=== PATIENT | female | born 1935 | race Two or more races ===

== ENCOUNTER 2018-01-21 18:05 | Observation (INO) | payer MEDICARE, OTHER ==
[~2018-01-21] VITALS: Ht 154.9 cm; Wt 71.9 kg
[~2018-01-21 18:05] MED LIST: AMLODIPINE BESYL5 MG PO; GLIMEPIRIDE2 MG PO; MELOXICAM7.5 MG PO; METOPROLOL TART25 MG PO; PROTONIX40 MG/ML; SIMVASTATIN40 MG PO; TRAMADOL-ACETAMI1 EA PO; VASOTEC10 MG PO
[2018-01-21] MEDS ORDERED: ASPIRIN 81 MG CHEW TAB PO ONE (18:30)
[2018-01-21 18:45] LABS: BASOPHILS # (AUTO) 0.1 (0.0-0.1); BASOPHILS % 0.5 % (0.0-1.0); EOSINOPHILS # (AUTO) 0.3 (0.0-0.4); EOSINOPHILS % 2.4 % (0.0-6.0); HEMATOCRIT 42.1 % (34.2-44.1); HEMOGLOBIN 13.6 g/dL (12.0-16.0); LYMPHOCYTES # (AUTO) 2.6 (1.0-3.2); LYMPHOCYTES % 25.3 % (18.0-39.1); MEAN CORPUSCULAR HEMOGLOBIN 29.7 pg (28-32); MEAN CORPUSCULAR HGB CONC 32.3 g/dL (31-35); MEAN CORPUSCULAR VOLUME 91.9 fL (81-99); MONOCYTES # (AUTO) 0.6 (0.2-0.8); MONOCYTES % 6.1 % (4.4-11.3); NEUTROPHILS # (AUTO) 6.8 (2.1-6.9); NEUTROPHILS % 65.3 % (38.7-80.0); PLATELET COUNT 366 x10e3/uL (140-360); RED BLOOD COUNT 4.58 x10e6/uL (3.6-5.1); RED CELL DISTRIBUTION WIDTH 13.1 % (11.7-14.4)
[2018-01-21 18:53] LABS: INR 0.95; PROTHROMBIN TIME 13.6 seconds (11.9-14.5)
[2018-01-21 18:54] LABS: PARTIAL THROMBOPLASTIN TIME 27.8 seconds (23.8-35.5)
[2018-01-21 19:02] LABS: ALANINE AMINOTRANSFERASE 28 IU/L (0-55); ALBUMIN 3.7 g/dL (3.5-5.0); ALBUMIN/GLOBULIN RATIO 0.9 (0.8-2.0); ALKALINE PHOSPHATASE 76 IU/L (40-150); ANION GAP 16.1 mmol/L (8-16); BLOOD UREA NITROGEN 19 mg/dL (7-26); BUN/CREATININE RATIO 25 (6-25); CALCIUM 9.7 mg/dL (8.4-10.2); CARBON DIOXIDE 26 mmol/L (22-29); CHLORIDE 104 mmol/L (98-107); CREATINE KINASE 113 IU/L (29-168); CREATININE, SERUM 0.77 mg/dL (0.57-1.11); EST GLOMERULAR FILTRATION RATE > 60 ML/MIN (60-); GLUCOSE 157 mg/dL (74-118); SODIUM 141 mmol/L (136-145)
[2018-01-21 19:04] LABS: POTASSIUM 5.1 mmol/L (3.5-5.1)
[2018-01-21] MEDS ORDERED: PANTOPRAZOLE SO40 MG PO (19:30)
--- NOTE | 2018-01-21 20:01 | Diagnostic Imaging Report ---
Examination: Single AP view of the chest. COMPARISON: None. INDICATION: Chest pain DISCUSSION: Lines/tubes: None. Lungs: No focal pneumonia. Central pulmonary venous congestion. Pleura: No pleural effusion or pneumothorax. Heart and mediastinum: Cardiomegaly. Bones and soft tissues: No acute bony abnormalities. IMPRESSION: Cardiomegaly with central pulmonary venous congestion. Signed by: Dr. Idris Garcia M.D. on 01/21/2018 7:57 PM
[2018-01-21] MEDS ORDERED: DEXTROSE 50% SYRINGE 50 ML IV PRN (20:30)
[2018-01-22] VITALS (8 sets, daily range): BP systolic 132–149; BP diastolic 58–66
[2018-01-22] MEDS: INSULIN REGULAR, HUMAN 100 UNIT/1 ML 3ML VIAL SQ SCH ×4 (00:15→16:30)
[2018-01-22] MEDS ORDERED: METOPROLOL TARTRATE INJ 1 MG/ML VIAL IV ONE (00:30)
[2018-01-22] MEDS ORDERED: METOPROLOL TARTRATE 25 MG TAB ONE (00:51)
[2018-01-22 01:18] LABS: CREATINE KINASE 74 IU/L (29-168)
[2018-01-22] MEDS ORDERED: METOPROLOL TARTRATE 25 MG TAB PO ONE (02:15)
[2018-01-22 05:47] LABS: CREATINE KINASE 69 IU/L (29-168)
[2018-01-22 06:36] LABS: CHOL/HDL RATIO 3.3 (3.0-3.6)
[2018-01-22] MEDS ORDERED: GLIMEPIRIDE 2 MG TAB PO SCH (09:00)
[2018-01-22] MEDS ORDERED: AMLODIPINE BESYLATE 5 MG TAB PO SCH (09:00)
[2018-01-22] MEDS ORDERED: MELOXICAM 7.5 MG TAB PO PRN (09:00)
[2018-01-22] MEDS ORDERED: ASPIRIN 325 MG TAB PO SCH (09:00)
[2018-01-22] MEDS: METOPROLOL TARTRATE 25 MG TAB PO SCH ×2 (09:19→17:00)
[2018-01-22] MEDS: ENALAPRIL MALEATE 10 MG TAB PO SCH ×2 (09:19→17:00)
--- NOTE | 2018-01-22 16:30 | Consultation ---
DATE OF CONSULTATION: January 22, 2018 REASON FOR THE CONSULTATION: Chest pain, palpitations, shortness of breath. HISTORY: An 82-year-old lady who is known with mild coronary artery disease, hypertension, hypercholesterolemia, and degenerative joint disease. Patient in her usual status of health; however, for the last few weeks she is having palpitations and severe shortness of breath. She cannot catch her breath. Her symptoms became progressively worse. She needed to come to the emergency room, admitted for further management. Her BNP was at only 54. Her cardiac enzymes were normal. Cardiac consultation is obtained. I visited the patient. Her symptoms are mainly palpitations associated with shortness of breath, chest tightness, chest pressure. Progressively worse over the last few weeks. Becoming very severe yesterday and necessitated admission. There is no orthopnea. There is no paroxysmal nocturnal dyspnea. Patient really does have usually limited activity, and she is deconditioned to a certain extent. We were danny, her EKG showed nicely the presence of AV toño reentry tachycardia. Patient's baseline EKG showed 1st degree AV block and nonspecific ST changes. HOME MEDICATIONS: Aspirin 81 mg a day, simvastatin 40 mg a day, amlodipine 5 mg a day, glimepiride 1 mg a day, Protonix 40 mg a day, meloxicam 15 mg a day, enalapril 10 mg twice a day, metoprolol 12.5 mg twice a day. ALLERGIES: PENICILLIN CAUSING RASH. PAST MEDICAL HISTORY 1. Coronary artery disease documented in 2014, 80% diagonal disease and moderate disease in the other vessels. 2. Hypertension. 3. Hypercholesterolemia. 4. Diabetes mellitus. 5. Degenerative joint disease. 6. Osteoporosis. 7. Headache. 8. Right and left knee replacement. SOCIAL HISTORY: She is nonsmoker, non-alcohol drinker. FAMILY HISTORY: Mother of age 80 . Father at age 32 with ruptured appendix. She is the only child. She does not have any siblings. REVIEW OF SYSTEMS GENERAL: No fever, no chills. HEENT: Unremarkable. PULMONARY: Severe shortness of breath on exertion. CARDIAC: As per acute illness. GI: Decreased appetite, bloating, constipation, occasional left lower quadrant pain. HEMATOLOGY: No easy bruising or bleeding. : Increased frequency of urination. No incontinence. MUSCULOSKELETAL: Back pain and knee pain. PERIPHERAL VASCULAR: No claudication. NEUROSURGICAL: Significant for neuropathy like symptoms. PHYSICAL EXAMINATION: VITAL SIGNS: Height of 5 feet 1 inch, weight of 158 pounds, blood pressure 130/60, heart rate of 70, respiratory rate of 18. HEENT: Pupils are reactive. NECK: No elevation of jugular venous pulsation. CHEST: Decreased lung expansion but clear to auscultation and percussion. HEART: PMI 5th left intercostal space. Normal 1st and 2nd heart sounds with soft ejection systolic murmur. ABDOMEN: Soft. There is no organomegaly. EXTREMITIES: No cyanosis, no clubbing, no edema. NEUROLOGIC: Awake, alert, oriented. No motor deficits. LABORATORY DATA: BNP of only 54. CKs are normal. Triglycerides of 105. Cholesterol of 159, HDL of 48, LDL of 90. TSH of 1.6. Sodium of 141, potassium 5.1, BUN of 19, creatinine of 0.77. Hemoglobin is 13.6, hematocrit 42%, platelet count of 336,000, white blood cell count of 10.4. EKG as described above. IMPRESSION 1. Atrioventricular toño re-entry tachycardia. 2. Coronary artery disease with stable angina. 3. Dyspnea on exertion. 4. Hypertension. 5. Diabetes mellitus. 6. Debility. RECOMMENDATIONS: Continuation of beta samuel at current dose, WINNIE inhibitor, and statin. Copies of the EKG are taken. Patient will be referred as an outpatient for EP evaluation for her AV toño reentry tachycardia. Differential diagnosis are discussed and explained. Questions are answered. Job#: [id number]
[2018-01-22] MEDS ORDERED: SIMVASTATIN 40 MG TAB PO SCH (21:00)
--- OUTSIDE RECORDS SUMMARY | 2018-01-28 12:28 | XMS REPORT ---
Author [facility] Address Unknown Phone Unavailable Care Team Providers Care Electrician Manager Name Role Phone Cortes SCHWAB Unavailable Unavailable Problems This patient has no known problems. Allergies, Adverse Reactions, Alerts This patient has no known allergies or adverse reactions. Medications This patient has no known medications. Results Test Description Test Time Test Comments Text Results Atomic Results Result Comments CHEST SINGLE (NOT PORTABLE) 2018-01-21 19:56:00 [place] [address] Patient Name: HEMAL CARTER MR #: [id number] : 1935 Age/Sex: 82/F Req #: [id number] Adm Physician: Ordered by: ABIGAIL ZIMMER DIRECTOR UNIVERSITY Report #: [id number] Location: ER Room/Bed: Procedure: [id number] DX/CHEST SINGLE (NOT PORTABLE) Exam Date: 01/21/18 Exam Time: 1935 REPORT STATUS: Signed Examination: Single AP view of the chest. COMPARISON: None. INDICATION: Chest pain DISCUSSION: Lines/tubes: None. Lungs: No focal pneumonia. Central pulmonary venous congestion. Pleura: No pleural effusion or pneumothorax. Heart and mediastinum: Cardiomegaly. Bones and soft tissues: No acute bony abnormalities. IMPRESSION: Cardiomegaly with central pulmonary venous congestion. Signed by: Dr. Aurora Rizvi M.D. on 01/21/2018 7:57 PM Dictated By: AURORA RIZVI MD 56 Transcribed By: PADMINI on 01/21/181956 COPY TO: ABIGAIL ZIMMER NP
--- NOTE | 2018-03-13 01:12 | Discharge Summary ---
CHIEF COMPLAINT: Chest pain. FINAL DIAGNOSES: 1. Chest pain. 2. Diabetes type 2. 3. Hypertension. 4. Gastroesophageal reflux disease. DISPOSITION: Home. [id number] female with history of hypertension, diabetes type 2, hyperlipidemia, brought to the ER with a sudden onset of chest discomfort associated with shortness of breath and palpitations, lasting approximately 10 minutes. She was having no chest pain upon arrival to the ER. No other complaints. It was noted in the ER she had a temperature of 98.7, BP 171/87, pulse 80. Underwent management and review in the emergency room. Cardiac enzymes were being initiated. Admission was being made for evaluation of the complaint of chest pain with palpitations and shortness of breath, rule out cardiac ischemia, hypertension, diabetes type 2. Further monitored the cardiac enzymes. Request a cardiology follow. Home medications will continue. From the ER, she was admitted to the IMCU department, continuing on a cardiac diet. She was in no acute distress. She was on aspirin 325 daily. Her insulin coverage was continuing. Daily medications were continuing as well. Blood sugar was 157. Hematology was stable. She was continuing in her workup. Her EKGs are showing sinus rhythm with a marked sinus arrhythmia with a first-degree AV block with frequent and consecutive premature ventricular complexes. Other EKGs are showing ST-T-wave abnormality, consider lateral ischemia. Cardiac review was uneventful. Cardiac enzymes were uneventful. Patient was cleared for discharge and was able to be released on January 22, 2018. With regards to further cardiac monitoring, request is made for the patient to follow up with Dr. Jaquez per his instructions. Will be following back up with Dr. Aldana in his office within 1 to 2 weeks. Will be continuing on amlodipine besylate 5 mg daily, Vasotec 10 mg twice a day, glimepiride 1 mg daily, meloxicam 15 mg daily as needed for pain, metoprolol tartrate 12.5 mg twice a day, simvastatin 40 mg daily. It was noted on her demographic sheet that she has no documented PCP. She may choose one of her liking or she may followup with me in my office within 2 weeks. Dictated By: IMER Acosta Job#: [id number]
== END 2018-01-22 18:27 | disposition home or self-care (01) ==
LOC: ER 18:05 → ERHOLD 21:56 → IMCU 01-22 02:14
DX: I47.1 Supraventricular tachycardia (principal); I25.118 Atherosclerotic heart disease of native coronary artery with other forms of angina pectoris; I10 Essential (primary) hypertension; E11.9 Type 2 diabetes mellitus without complications; E78.5 Hyperlipidemia, unspecified; Z88.0 Allergy status to penicillin; Z82.49 Family history of ischemic heart disease and other diseases of the circulatory system; E78.00 Pure hypercholesterolemia, unspecified; Z96.653 Presence of artificial knee joint, bilateral; R53.81 Other malaise; K21.9 Gastro-esophageal reflux disease without esophagitis
CPT/HCPCS: 36415; 71045; 80053; 80061; 82550 ×2; 82553 ×2; 82948; 83735; 83880; 84443; 84484 ×2; 85025; 85610; 85730; 93005 ×2; 99284; G0378 ×2

== ENCOUNTER 2018-03-09 18:04 | Emergency (ER) | payer MEDICARE ==
[~2018-03-09] VITALS: Ht 154.9 cm; Wt 71.7 kg
[~2018-03-09 18:04] MED LIST changes: +PANTOPRAZOLE SO40 MG PO
[2018-03-09] MEDS ORDERED: SODIUM CHLORIDE 0.9% 500ML 500 ML IV ONE (19:15)
[2018-03-09] MEDS ORDERED: ASPIRIN 81 MG CHEW TAB PO ONE (19:15)
[2018-03-09 19:48] LABS: BASOPHILS % 0.3 % (0.0-1.0); EOSINOPHILS # (AUTO) 0.2 (0.0-0.4); EOSINOPHILS % 1.5 % (0.0-6.0); HEMATOCRIT 37.2 % (34.2-44.1); HEMOGLOBIN 11.9 g/dL (12.0-16.0); LYMPHOCYTES # (AUTO) 2.1 (1.0-3.2); LYMPHOCYTES % 16.4 % (18.0-39.1); MEAN CORPUSCULAR VOLUME 90.7 fL (81-99); MONOCYTES # (AUTO) 0.8 (0.2-0.8); MONOCYTES % 6.6 % (4.4-11.3); NEUTROPHILS # (AUTO) 9.5 (2.1-6.9); NEUTROPHILS % 74.8 % (38.7-80.0); PLATELET COUNT 443 x10e3/uL (140-360); RED CELL DISTRIBUTION WIDTH 13.1 % (11.7-14.4)
[2018-03-09 19:59] LABS: INR 1.04; PROTHROMBIN TIME 14.5 seconds (11.9-14.5)
[2018-03-09 20:10] LABS: ALANINE AMINOTRANSFERASE 57 IU/L (0-55); ALBUMIN 3.5 g/dL (3.5-5.0); ALBUMIN/GLOBULIN RATIO 0.9 (0.8-2.0); ALKALINE PHOSPHATASE 73 IU/L (40-150); BLOOD UREA NITROGEN 27 mg/dL (7-26); BUN/CREATININE RATIO 35 (6-25); CALCIUM 9.3 mg/dL (8.4-10.2); CARBON DIOXIDE 28 mmol/L (22-29); CHLORIDE 96 mmol/L (98-107); CREATINE KINASE 68 IU/L (29-168); CREATININE, SERUM 0.77 mg/dL (0.57-1.11); EST GLOMERULAR FILTRATION RATE > 60 ML/MIN (60-); GLUCOSE 118 mg/dL (74-118); SODIUM 131 mmol/L (136-145)
--- NOTE | 2018-03-09 20:48 | Diagnostic Imaging Report ---
EXAMINATION: CHEST SINGLE (PORTABLE) INDICATION: Chest pain, shortness of breath COMPARISON: 01/21/2018 FINDINGS: AP view TUBES and LINES: None. LUNGS: Lungs are well inflated. Stable central pulmonary venous congestion. Increased right basilar linear opacity likely representing atelectasis. PLEURA: No pleural effusion or pneumothorax. HEART AND MEDIASTINUM: Aortic arch calcifications. Stable cardiomegaly. BONES AND SOFT TISSUES: No acute osseous lesion. Soft tissues are unremarkable. UPPER ABDOMEN: No free air under the diaphragm. IMPRESSION: Stable cardiomegaly with central pulmonary venous congestion. Signed by: DR. Sherwin Allen MD on 03/09/2018 8:45 PM
[2018-03-09] MEDS ORDERED: MECLIZINE HCL 12.5 MG TAB PO SCH (21:00)
[2018-03-09 21:16] LABS: BILIRUBIN,URINE NEGATIVE (NEGATIVE); CLARITY,URINE HAZY (CLEAR); COLOR,URINE STRAW (YELLOW); KETONES,URINE NEGATIVE (NEGATIVE); LEUKOCYTE ESTERASE ,URINE NEGATIVE (NEGATIVE); NITRITE,URINE NEGATIVE (NEGATIVE); PROTEIN,URINE DIPSTICK NEGATIVE (NEGATIVE); URINE UROBILINOGEN 0.2 mg/dL (0.2 - 1)
[2018-03-09 21:17] LABS: EPITHELIAL CELLS,URINE MODERATE /LPF
[2018-03-09 21:19] LABS: BACTERIA,URINE MODERATE /HPF; RBC,URINE 0-5 /HPF (0-5); WBC,URINE (MAN) 0-5 /HPF (0-5)
[2018-03-09] MEDS ORDERED: ONDANSETRON HCL INJ 2 MG/ML VIAL IV PRN (21:30)
[2018-03-09] MEDS ORDERED: MORPHINE SULFATE 2 MG/ML SYR IV PRN (21:30)
[2018-03-09] MEDS: FAMOTIDINE 20 MG/2 ML VIAL IV SCH (22:11)
[2018-03-09] MEDS ORDERED: NITROGLYCERIN 2% OINT 1 GM PKT TOP ONE (22:15)
[2018-03-10 02:48] LABS: BASOPHILS % 0.3 % (0.0-1.0); EOSINOPHILS # (AUTO) 0.2 (0.0-0.4); EOSINOPHILS % 1.7 % (0.0-6.0); HEMATOCRIT 34.2 % (34.2-44.1); HEMOGLOBIN 11.3 g/dL (12.0-16.0); LYMPHOCYTES # (AUTO) 2.5 (1.0-3.2); LYMPHOCYTES % 22.5 % (18.0-39.1); MEAN CORPUSCULAR HEMOGLOBIN 29.6 pg (28-32); MEAN CORPUSCULAR VOLUME 89.5 fL (81-99); MONOCYTES # (AUTO) 0.7 (0.2-0.8); MONOCYTES % 6.6 % (4.4-11.3); NEUTROPHILS # (AUTO) 7.5 (2.1-6.9); NEUTROPHILS % 68.7 % (38.7-80.0); PLATELET COUNT 391 x10e3/uL (140-360); RED BLOOD COUNT 3.82 x10e6/uL (3.6-5.1)
[2018-03-10 03:06] LABS: ANION GAP 11.8 mmol/L (8-16); BLOOD UREA NITROGEN 25 mg/dL (7-26); BUN/CREATININE RATIO 38 (6-25); CALCIUM 8.9 mg/dL (8.4-10.2); CARBON DIOXIDE 27 mmol/L (22-29); CHLORIDE 96 mmol/L (98-107); CHOL/HDL RATIO 2.5 (3.0-3.6); CHOLESTEROL 134 MD/DL (0-199); CREATININE, SERUM 0.66 mg/dL (0.57-1.11); EST GLOMERULAR FILTRATION RATE > 60 ML/MIN (60-); GLUCOSE 120 mg/dL (74-118); HDL CHOLESTEROL 53 MG/DL (40-60); LDL CHOLESTEROL 73 MG/DL (60-130); POTASSIUM 4.8 mmol/L (3.5-5.1); SODIUM 130 mmol/L (136-145); TRIGLYCERIDES 40 MG/DL (0-149)
[2018-03-10 03:24] LABS: CREATINE KINASE MB 1.6 ng/mL (0-5.0)
[2018-03-10] MEDS ORDERED: CITALOPRAM HBR20 MG PO (08:52)
[2018-03-10] MEDS ORDERED: ACETAMINOPHEN325 M1 PO (08:52)
[2018-03-10] MEDS ORDERED: ASPIR 8181 MG PO (08:52)
[2018-03-10] MEDS: FAMOTIDINE 20 MG/2 ML VIAL IV SCH (09:30)
[2018-03-10 11:18] LABS: CREATINE KINASE MB 1.1 ng/mL (0-5.0)
[2018-03-10] MEDS ORDERED: DEXTROSE 50% SYRINGE 50 ML IV PRN (12:00)
[2018-03-10] MEDS ORDERED: ACETAMINOPHEN 325 MG TAB PO PRN (12:00)
[2018-03-10] MEDS ORDERED: MELOXICAM 7.5 MG TAB PO PRN (12:00)
[2018-03-10] MEDS ORDERED: REGADENOSON 0.4 MG/5 ML SYR IV ONE (12:36)
--- NOTE | 2018-03-10 15:06 | Consultation ---
DATE OF CONSULTATION: March 10, 2018 CARDIOLOGY CONSULTATION REASON FOR CONSULTATION: Chest pain and shortness of breath. HISTORY OF PRESENT ILLNESS: Ms. 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 Patient reports that after the ablation she had not been feeling well. She had reported subjective shortness of breath, malaise and chest discomfort and came back to [facility] where she had a CT PE protocol which was negative for dissection and PE and was observed and was treated medically. She post her ablation was noted to have a 1st-degree AV block with intermittent Wenckebach, and EP study during the time of her ablation revealed a normal HV or infrahisian conduction; hence, did not require a pacemaker. She has reported short bouts of palpitations. However, her main complaint which brought her here to the hospital is midepigastric chest and lower sternal chest discomfort, dull ache moderate in nature, perhaps related to position but may be related to activity as well. She is a very poor and difficult historian but also complains of severe shortness of breath and feels that her legs may be more so swollen than normal. We had a very long discussion with her and daughter at bedside to help corroborate history, and again a very difficult history to obtain. PAST MEDICAL HISTORY 1. Hypertension, essential. 2. Hypercholesterolemia. 3. Type 2 diabetes diagnosed in 2014. 4. History of AV toño reentry tachycardia ablation in February of 2018. 5. History of 1st-degree AV block at baseline with intermittent Wenckebach. 6. Osteoporosis. 7. 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 8. Off-and-on headaches. PAST SURGICAL HISTORY: History of right and left knee replacement surgery in early 1999. FAMILY HISTORY: Mother at 80, had hypertension. Father at the age of 32 due to a ruptured appendix. SOCIAL HISTORY: She is . She is a lifelong nonsmoker. Denies any alcohol or illicit drug use. ALLERGIES: INCLUDE PENICILLIN, WHICH CAUSES A RASH. CURRENT MEDICATIONS: Include aspirin 81 mg daily, Norvasc 5 mg daily, acetaminophen 325 mg q.6 h. p.r.n., enalapril 10 mg b.i.d., glimepiride 1 mg daily, meloxicam 15 mg p.r.n., metoprolol 12.5 mg b.i.d., Zocor 40 mg nightly. REVIEW OF SYSTEMS GENERAL: Positive for fatigue, malaise. Denies any fevers or chills. HEENT: Has occasional headaches. Denies any sore throat, stuffy nose. RESPIRATORY: Denies any pleuritic chest pain. Has exertional dyspnea and an occasional nonproductive cough. CARDIOVASCULAR: As per HPI. GI: Positive for epigastric pain. Denies any bright red blood per rectum, melena, hematemesis. Positive for poor appetite. : Denies any dysuria, pyuria or changes in urinary frequency. MUSCULOSKELETAL: Positive for severe knee pain and DJD and difficult ambulating. NEUROLOGIC: Denies any focal weakness, numbness, tingling. Denies any history of TIA or stroke. REMAINDER: Negative otherwise mentioned. PHYSICAL EXAMINATION VITAL SIGNS: Height of 61 inches, weight of 158 pounds. BMI is 29.9. Temperature of 97.9, pulse of 77, respiratory rate of 18, blood pressure is 155/69, O2 sat 97% on room air. IN GENERAL: This is a well-nourished, well-developed lady who is currently in no apparent distress. HEENT: Pupils are equally round and reactive to light. Extraocular movements are intact. Oropharynx is clear. NECK: No elevation of jugular venous pulsation, no carotid bruits. CARDIOVASCULAR: Regular rate and rhythm. Normal S1 and S2. Positive ectopy. A 3/6 systolic murmur at the right upper sternal border. LUNGS: Seemingly clear to auscultation bilaterally. ABDOMEN: Soft. Discomfort to palpation in the midepigastric region. No lucas guarding or rebound. Normoactive bowel sounds. BACK: No costovertebral angle tenderness. EXTREMITIES: Warm with 2+ bilateral radial pulses, 1 to 2+ pedal pulses. NEUROLOGIC: Cranial nerves 2-12 are intact. Strength is seemingly preserved, and she appears nonfocal. LABS: White count 10.9, hemoglobin 11.3, hematocrit 34.2, platelets of 391. Sodium 130, potassium 4.8, chloride 96, bicarb 27, BUN 25, creatinine is 0.66, glucose of 120, calcium of 8.9. AST 28, ALT 57, alk phos 73. Total protein of 7.4, albumin of 3.5. Troponin went from 0.024 to 0.021. Lipid profile shows total cholesterol of 134, triglycerides of 40, HDL of 53, LDL of 73. INR is 1.04. UA shows 0-5 white cells. DIAGNOSTIC STUDIES: Chest x-ray revealed some slight cardiomegaly. EKG reveals a 1st-degree AV block and intermittent Wenckebach but no ST-T wave changes concerning for ischemia. DIAGNOSES 1. Chest pain symptoms with wide differential diagnosis with abnormal baseline electrocardiogram and inability to walk due to severe leg degenerative joint disease. 2. Subjective lower extremity leg swelling with trace edema on exam. 3. Exertional dyspnea and failure to thrive type symptoms. 4. History of atrioventricular toño reentry type cardio-ablation on February 25, 2018, with Dr. Jaquez. 5. Hypertension, essential. 6. Hypercholesterolemia. 7. Questionable gastroesophageal reflux disease. PLAN/RECOMMENDATIONS 1. From a cardiovascular standpoint, will proceed with ischemic risk stratification with pharmacologic nuclear stress test in light of her inability to exercise due to her DJD in her knees. 2. Will monitor patient on telemetry to see if there are any occult arrhythmias which may be explaining her symptoms. 3. Will check echocardiogram to evaluate her heart structure and make sure there are no complications related to recent ablation. 4. Will check lower extremity venous duplex, as the patient has been immobile and has subjective swelling, to make sure there is no occult thrombosis in her lower extremities. 5. Will continue to monitor this patient. 6. In light of her slow heart rate on admission, will go ahead and hold her beta samuel for the time-being. Job#: [id number] EV
[2018-03-10] MEDS ORDERED: INSULIN LISPRO 100 UNIT/1 ML 3ML VIAL SQ SCH (16:30)
[2018-03-10] MEDS ORDERED: METOPROLOL TARTRATE 25 MG TAB PO SCH (17:00)
[2018-03-10] MEDS ORDERED: ENALAPRIL MALEATE 10 MG TAB PO SCH (17:00)
--- NOTE | 2018-03-10 17:38 | Cardiology Report ---
DATE OF STUDY: March 10, 2018 LEXISCAN NUCLEAR STRESS TEST INDICATIONS FOR STUDY: Chest pain and inability to exercise. TECHNICAL DETAILS: The risks, benefits, pros, and cons of Lexiscan nuclear stress test were explained and the patient agreed to proceed. Patient was brought to the nuclear lab where she received 11 millicuries of technetium-99 intravenously. After 40 minutes, resting myocardial perfusion imaging was performed on the [employer] SPECT camera. Afterwards, the patient was brought to the stress lab were 12-lead EKG monitoring and blood pressure monitor were obtained. She received a dose of Lexiscan 0.4 mg intravenously followed by a 33 millicuries of technetium-99 intravenously. Resting heart rate went from a baseline of 66 beats per minute to a maximum of 105 beats per minute, and blood pressure went from a baseline of 146/26 to 158/53, which is an appropriate hemodynamic response. Underlying EKG revealed normal sinus rhythm with Mobitz 140 beats. With Lexiscan infusion, there is no ischemic EKG changes or symptoms. There resolution of the Wenckebach with Lexiscan infusion. After 25 minutes, the patient was then taken to the SPECT camera for stress myocardial perfusion imaging. FINDINGS: 1. Resting myocardial perfusion imaging reveals normal tracer uptake and no significant . 2. Stress myocardial perfusion imaging reveals normal tracer uptake and no scintigraphic areas of ischemia. 3. The following data present is pain. Diastolic volume was 55 mm. Systolic volume was 7 mL. Left ventricular ejection fraction is calculated to be 87% with normal wall motion. CONCLUSIONS 1. Normal myocardial perfusion imaging study revealing normal tracer uptake and no scintigraphic areas of ischemia. 2. Normal left ventricular function with ejection fraction calculated to be 87%. 3. Overall, the stress test compatible with low risk stress test. Job#: [id number] MT
[2018-03-10] MEDS ORDERED: SIMVASTATIN 40 MG TAB PO SCH (21:00)
[2018-03-11] MEDS ORDERED: GLIMEPIRIDE 2 MG TAB PO SCH (09:00)
[2018-03-11] MEDS ORDERED: ASPIRIN 81 MG CHEW TAB PO SCH (09:00)
[2018-03-11] MEDS ORDERED: AMLODIPINE BESYLATE 5 MG TAB PO SCH (09:00)
[2018-03-11] MEDS ORDERED: CITALOPRAM HYDROBROMIDE 20 MG TAB PO SCH (09:00)
== END 2018-03-10 18:25 | disposition home or self-care (01) ==
LOC: ER 18:04 → ERHOLD 21:34 → UNDOADMOB 21:34
DX: R07.89 Other chest pain (principal); I10 Essential (primary) hypertension; E11.9 Type 2 diabetes mellitus without complications; I25.10 Atherosclerotic heart disease of native coronary artery without angina pectoris; E78.00 Pure hypercholesterolemia, unspecified
CPT/HCPCS: 36415 ×2; 71045; 78452; 80048; 80053; 80061; 81001; 82550 ×2; 82553 ×2; 82948; 84484 ×2; 85025 ×2; 85610; 85730; 93005; 93017; 93970; 99284; A9502; J2405; J2785

== ENCOUNTER 2018-04-03 06:17 | Observation (INO) | payer MEDICARE ==
[2018-04-02 12:02] LABS: BASOPHILS # (AUTO) 0.1 (0.0-0.1); BASOPHILS % 0.7 % (0.0-1.0); EOSINOPHILS # (AUTO) 0.2 (0.0-0.4); EOSINOPHILS % 2.3 % (0.0-6.0); HEMOGLOBIN 13.4 g/dL (12.0-16.0); LYMPHOCYTES % 23.7 % (18.0-39.1); MEAN CORPUSCULAR HEMOGLOBIN 29.4 pg (28-32); MEAN CORPUSCULAR HGB CONC 31.9 g/dL (31-35); MEAN CORPUSCULAR VOLUME 92.1 fL (81-99); MONOCYTES # (AUTO) 0.6 (0.2-0.8); MONOCYTES % 6.7 % (4.4-11.3); NEUTROPHILS # (AUTO) 5.6 (2.1-6.9); NEUTROPHILS % 66.5 % (38.7-80.0); PLATELET COUNT 366 x10e3/uL (140-360); RED BLOOD COUNT 4.56 x10e6/uL (3.6-5.1); RED CELL DISTRIBUTION WIDTH 12.9 % (11.7-14.4)
[2018-04-02 12:15] LABS: INR 0.99
[2018-04-02 12:28] LABS: ANION GAP 10.9 mmol/L (8-16); BLOOD UREA NITROGEN 20 mg/dL (7-26); BUN/CREATININE RATIO 24 (6-25); CALCIUM 9.3 mg/dL (8.4-10.2); CARBON DIOXIDE 30 mmol/L (22-29); CHLORIDE 100 mmol/L (98-107); CREATININE, SERUM 0.83 mg/dL (0.57-1.11); EST GLOMERULAR FILTRATION RATE > 60 ML/MIN (60-); GLUCOSE 212 mg/dL (74-118); POTASSIUM 4.9 mmol/L (3.5-5.1); SODIUM 136 mmol/L (136-145)
[2018-04-03] VITALS (12 sets, daily range): BP systolic 124–170; BP diastolic 61–73
[~2018-04-03] VITALS: Ht 152.4 cm; Wt 76.2 kg
[~2018-04-03 06:17] MED LIST changes: +ACETAMINOPHEN325 M1 PO; +ASPIR 8181 MG PO; +CITALOPRAM HBR20 MG PO
[2018-04-03] MEDS ORDERED: MIDAZOLAM HCL 2 MG/2 ML VIAL ONE (06:47)
[2018-04-03] MEDS ORDERED: FENTANYL CITRATE/PF 100MCG/2 ML INJ ONE (06:47)
[2018-04-03] MEDS ORDERED: LIDOCAINE HCL 2% LOCAL 20 ML VIAL ONE (06:48)
[2018-04-03] MEDS ORDERED: BACITRACIN 50,000 UNIT VIAL ONE (06:48)
[2018-04-03] MEDS ORDERED: SODIUM CHLORIDE 0.9% 500ML 1,000 ML ONE (06:49)
[2018-04-03] MEDS ORDERED: SODIUM CHLORIDE 0.9% 1000ML 1,000 ML ONE (06:49)
[2018-04-03] MEDS ORDERED: VANCOMYCIN 1GM/NS 250 ML 250 ML ONE (07:39)
--- NOTE | 2018-04-03 09:31 | NUR ---
pt transferred to [facility] holding room 9 for recovery. AAOx3, resp easy/unlabored on room air. VSS. Family at bedside. Dressing to L upper chest clean/dry/intact. Sling to L arm in place; instructions given to pts daughter to leave sling on until follow up appt, understanding verbalized. No c/o pain/discomfort voiced. Bed in low position, SR upx2, call light in reach. Will continue to monitor.
--- NOTE | 2018-04-03 09:42 | NUR ---
Radiology at bedside for stat chest xray
--- NOTE | 2018-04-03 10:00 | Diagnostic Imaging Report ---
Examination: Single AP view of the chest. COMPARISON: 03/09/2018 INDICATION: Post pacemaker placement DISCUSSION: Interval placement of a left subclavian approach cardiac device. Leads project over the right atrium and right ventricle. No pneumothorax. Lung volumes are low with linear opacity in the bases likely atelectasis. Stable enlargement of the cardiac silhouette with pulmonary venous congestion. No acute osseous abnormality. IMPRESSION: Interval placement of a left subclavian approach implantable cardiac device, positioned as above. No pneumothorax. Low lung volumes with pulmonary venous congestion, similar to that noted on 03/09/2018. Signed by: Dr. Jeronimo Chin M.D. on 04/03/2018 9:56 AM
--- NOTE | 2018-04-03 10:02 | Operative Report ---
DATE OF PROCEDURE: April 03, 2018 PREOPERATIVE DIAGNOSES 1. Atrioventricular block. 2. Symptomatic bradycardia, nonreversible. PROCEDURE PERFORMED: Dual chamber permanent pacemaker placement. Moderate sedation with 0.5 of Versed and 50 of fentanyl for 50 minutes. O2 sats, heart rhythm and blood pressure were being monitored by me and the circulating nurse. The patient was brought into the lab in a fasting state. Left chest prepped and draped in a sterile fashion. Conscious sedation administered. Next, preoperative antibiotics were performed. Vancomycin was given. A 3 cm skin incision was made. Subcutaneous tissue and pocket were performed. Two guidewires were inserted in the left axillary vein using the modified Seldinger technique with no complications. Pacing lead advanced to the RV apex with sensing of 8, threshold 0.9, impedance 580 Ohms. Another pacing lead advanced to the right atrial appendage at sensing of 2.1, threshold 1.1, impedance 450 Ohms. Both leads sutured to the patch using 0 silk. Pocket profusely irrigated using antibiotic solution. Leads were connected to a [employer] dual chamber permanent pacemaker, serial number [id number] inserted in the pocket and sutured to the fascia using 0 silk. Subcutaneous tissue approximated with 2-0 Vicryl in 2 layers. Skin was approximated using 4-0 Vicryl and Dermabond. The patient tolerated the procedure well. No complications. CONCLUSION: Dual chamber permanent pacemaker placement with moderate sedation. Clinical followup in 2 weeks. Job#: [id number] ROBERTO MALCOLM
--- NOTE | 2018-04-03 10:04 | NUR ---
Resting quietly. No s/sx pain/discomfort. Will continue to monitor.
--- NOTE | 2018-04-03 10:12 | NUR ---
Daughter remains at bedside. Pt drinking water with no difficulty, tolerating well. Bed down, SR upx2, call light in reach. Will continue to monitor.
--- NOTE | 2018-04-03 10:47 | NUR ---
Pt sitting up in bed eating lunch. Tolerating well. Will continue to monitor.
--- NOTE | 2018-04-03 11:05 | NUR ---
Received patient from soap slabber, initial admission assessment complete. Patient is resting in bed, daughter at bedside. Call light in reach, bed in lowest position, bed locked. No signs of distress at this time.
[2018-04-03] MEDS: MINOCYCLINE HCL 50 MG CAP PO SCH (17:11)
[2018-04-03] MEDS: MORPHINE SULFATE INJ 4 MG/ML INJ IV PRN ×3 (17:45→23:20)
--- NOTE | 2018-04-03 18:53 | NUR ---
Report given to oncoming nurse. Bed in lowest position, wheels locked, call serrano in reach. No signs of distress noted.
--- NOTE | 2018-04-03 19:19 | NUR ---
Report received and walking rounds complete. Pt resting in bed and in no apparent distress. Family member at bedside. Pt has pacemaker and left arm sling. All safety measures ensured, bed alarm on, and pt call serrano near near.
[2018-04-04] VITALS (7 sets, daily range): BP systolic 148–171; BP diastolic 64–73
[2018-04-04] MEDS: MORPHINE SULFATE INJ 4 MG/ML INJ IV PRN ×4 (02:50→21:06)
--- NOTE | 2018-04-04 07:23 | NUR ---
report given to oncoming nurse
--- NOTE | 2018-04-04 07:30 | NUR ---
pt resting in bed, no s/s distress at this time. no c/o pain. will continue to monitor.
--- NOTE | 2018-04-04 08:52 | NUR ---
CASE MANAGEMENT INITIAL ASSESSMENT Scout Sniper to bedside to discuss plan of care with patient/family. CM/SW role and care transitions discussed. Anticipated discharge plan discussed along with duration of care. CM/SW discussed patients right to make decisions in care. CM/SW work hours given. Patient lives: IN HOME WITH DAUGHTER Admit/Transfer: VIA HOME POA/Emergency contact: MODE MARKS [phone] Current/Previous Home Health: NONE PCP/Follow-up Care: NAYANA Current/Previous DME: NANDINI Other Services: NONE Employment Status: RETIRED Areas of Concerns: NONE Referral Needs: NONE Education Needs: NONE IMM/PARSON given and signed (if applicable): PARSON Goal for discharge: RETURN HOME WITH FAMILY INDEPENDENTLY CM/SW left business card at the bedside with contact information. Name and number was also written on the patients whiteboard. Patient verbalized understanding of discussion. CM will follow-up with ongoing discharge and transition of care needs.
--- NOTE | 2018-04-04 09:04 | NUR ---
SECURITY RESEARCHER called to dc pt, informed pt and daughter didnt want to dc without seeing dr first. stated she would have MD call pt daughter and then me to update. PO med added.
[2018-04-04] MEDS ORDERED: HYDROCODONE/APAP 5MG-325MG TAB PO ONE (09:15)
[2018-04-04] MEDS: MINOCYCLINE HCL 50 MG CAP PO SCH ×2 (09:22→16:22)
[2018-04-04] MEDS ORDERED: HYDROCODONE/APAP 5MG-325MG TAB PO PRN (09:30)
--- NOTE | 2018-04-04 09:36 | NUR ---
per MD pt may stay overnight for obs dt weakness and pain, added dr clayton since established pcp. notified .
[2018-04-04] MEDS ORDERED: TEMAZEPAM 15 MG CAP PO PRN (10:15)
[2018-04-04] MEDS ORDERED: POLYETHYLENE GLYCOL 3350 17 GM PACK PO STA (20:45)
--- NOTE | 2018-04-04 20:47 | NUR ---
Patient complained of pain, paged [place] office and Dr. Max Dean called back and gave me orders for miralax 17gm once.
[2018-04-05] VITALS: BP 155/69
[2018-04-05 04:00] VITALS: BP 145/66
--- NOTE | 2018-04-05 07:33 | NUR ---
pt resting in bed, no s/s distress at this time. will continue to monitor.
[2018-04-05 07:34] VITALS: BP 145/66
--- NOTE | 2018-04-05 07:40 | NUR ---
Patient endorsed to next shift for continuity of care.
[2018-04-05 08:33] VITALS: BP 168/70
[2018-04-05] MEDS: MINOCYCLINE HCL 50 MG CAP PO SCH (08:42)
[2018-04-05] MEDS ORDERED: TYLENOL WITH C1 EACH PO (13:16)
[2018-04-05] MEDS ORDERED: MINOCYCLINE HCL50 MG PO (13:16)
--- NOTE | 2018-04-05 13:40 | NUR ---
reviewed dc instructions with pt and family, verbalized understanding. pt stable. dc via [facility] to private auto with family
--- NOTE | 2018-04-05 14:03 | Discharge Summary ---
ADMITTING DIAGNOSES 1. 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 2. Systolic heart failure. 3. Coronary artery disease. 4. Hypertensive heart disease. 5. Type 2 diabetes mellitus. DISCHARGE DIAGNOSES 1. Status post dual-chamber permanent pacemaker placement because of symptomatic bradycardia secondary to atrioventricular block. 2. Systolic heart failure. 3. Hypertensive heart disease. 4. Type 2 diabetes mellitus. HOSPITAL COURSE: This is an 82-year-old woman who was admitted to [facility] with a diagnosis of symptomatic bradycardia secondary to atrioventricular block. Patient was seen by her electrophysiology video intern, namely Dr. Jaquez. Dr. Jaquez successfully placed a dual-chamber permanent pacemaker during this hospital stay. Patient tolerated the procedure well, but due to excessive pain, she stayed overnight. Patient was discharged home in a stable condition. CONDITION ON DISCHARGE: Stable. DISCHARGE MEDICATIONS 1. Minocycline 50 mg p.o. b.i.d. for 5 days. 2. Tylenol No. 3 one tablet every 6 hours p.r.n. pain, 40 prescribed. 3. Glimepiride 2 mg daily. 4. Enalapril 10 mg b.i.d. 5. Aspirin 81 mg daily. 6. Amlodipine 5 mg daily. FOLLOWUP INSTRUCTIONS: Patient is instructed to follow up with Dr. Jaquez in [address] Aldana in 2 weeks. Patient instructed to follow up with Dr. Denise Rodriguez in 3 weeks. DAR MARKS MD Job#: [id number] LPA cc:MD DENISE ANGELO MD KHASHAYAR HEMATPOUR, MD
== END 2018-04-05 14:01 | disposition home or self-care (01) ==
LOC: CATH LAB 06:17 → CATH LAB V 09:27 → IMCU 11:06
PROVIDERS: ADMIT Internal Medicine Cardiovascular Disease; ATTEND Internal Medicine Cardiovascular Disease
DX: I44.1 Atrioventricular block, second degree (principal); I47.1 Supraventricular tachycardia; R00.1 Bradycardia, unspecified; I25.10 Atherosclerotic heart disease of native coronary artery without angina pectoris; K21.0 Gastro-esophageal reflux disease with esophagitis; E11.9 Type 2 diabetes mellitus without complications; Z96.653 Presence of artificial knee joint, bilateral; Z79.84 Long term (current) use of oral hypoglycemic drugs; E78.00 Pure hypercholesterolemia, unspecified; I11.0 Hypertensive heart disease with heart failure; I50.20 Unspecified systolic (congestive) heart failure; Z01.812 Encounter for preprocedural laboratory examination; Z28.82 Immunization not carried out because of caregiver refusal; Z88.0 Allergy status to penicillin
CPT/HCPCS: 33208; 36415 ×4; 71045; 80048; 82948 ×3; 85025; 85610; C1785; C1898 ×2; G0378 ×3; J2001; J2250; J2270 ×2; J3370; J7030; J7040

== ENCOUNTER 2021-10-10 11:16 | Emergency (ER) | payer MEDICARE, OTHER ==
[~2021-10-10] VITALS: Ht 154.9 cm; Wt 76.2 kg
[~2021-10-10 11:16] MED LIST changes: +MINOCYCLINE HCL50 MG PO; +TYLENOL WITH C1 EACH PO
[2021-10-10 11:35] LABS: BASOPHILS % 0.1 % (0.0-1.0); HEMOGLOBIN 13.5 g/dL (12.0-16.0); LYMPHOCYTES # (AUTO) 1.4 (1.0-3.2); LYMPHOCYTES % 7.9 % (18.0-39.1); MEAN CORPUSCULAR HEMOGLOBIN 29.3 pg (28-32); MEAN CORPUSCULAR HGB CONC 32.1 g/dL (31-35); MEAN CORPUSCULAR VOLUME 91.3 fL (81-99); MONOCYTES # (AUTO) 0.6 (0.2-0.8); MONOCYTES % 3.1 % (4.4-11.3); NEUTROPHILS # (AUTO) 16.1 (2.1-6.9); NEUTROPHILS % 88.4 % (38.7-80.0); PLATELET COUNT 464 x10e3/uL (140-360); RED CELL DISTRIBUTION WIDTH 12.3 % (11.7-14.4)
[2021-10-10 11:52] LABS: ANION GAP 14.6 mmol/L (8-16); CREATININE, SERUM 0.84 mg/dL (0.57-1.11); POTASSIUM 4.6 mmol/L (3.5-5.1)
== END 2021-10-10 16:39 | disposition home or self-care (01) ==
LOC: ER 11:22
DX: R51.9 Headache, unspecified (principal); E11.65 Type 2 diabetes mellitus with hyperglycemia; I10 Essential (primary) hypertension; E78.00 Pure hypercholesterolemia, unspecified
CPT/HCPCS: 36415; 80048; 85025; 99283